=== PATIENT | male | born 1950 | race African-American/Black ===

== ENCOUNTER 2018-11-22 05:12 | Observation (INO) ==
[2018-11-22] MEDS ORDERED: GLUCAGON SUBQ ONE (05:15)
[2018-11-22] MEDS ORDERED: D50W SYRINGE ONE (05:16)
[2018-11-22] MEDS ORDERED: D50W SYRINGE IV ONE (05:16)
--- NOTE | 2018-11-22 05:42 | PROVIDER DOCUMENTATION ---
HPI-General Adult - General Chief Complaint: Low Blood Sugar Stated Complaint: Low BS Time Seen by Provider: 11/22/18 05:15 Source: EMS Allergies/Adverse Reactions: Patient Allergies Allergy/AdvReac Type Severity Reaction Status Date / Time No Known Allergies Allergy Verified 11/22/18 06:21 Home Medications: Home Medication List Medication Instructions Recorded Confirmed Last Taken Type Tamsulosin [Flomax] 1 cap PO DAILY 09/10/12 11/22/18 06/08/18 05:00 History Atorvastatin Calcium [Lipitor] 40 mg PO QHS 07/16/16 11/22/18 06/08/18 05:00 History Primidone [Mysoline] 50 mg PO DAILY 07/16/16 11/22/18 06/08/18 05:00 History Furosemide [Lasix] 40 mg PO DAILY #30 tablet 07/19/16 11/22/18 06/08/18 05:00 Rx B Complex with Vitamin C [Super B 1 each PO DAILY 06/16/17 11/22/18 06/08/18 05: 00 History with Vit C] Carvedilol [Coreg] 6.25 mg PO BID 06/16/17 11/22/18 06/08/18 05:00 History Cholecalciferol (Vitamin D3) 1 cap PO DAILY 06/16/17 11/22/18 06/08/18 05:00 History [D3-2000] Hydralazine [Apresoline] 50 mg PO BID 06/16/17 11/22/18 06/08/18 05:00 History Insulin Detemir [Levemir] 40 unit SUBQ DAILY 06/16/17 11/22/18 06/08/18 05:00 History Aspirin 81 mg PO DAILY 06/03/18 11/22/18 06/01/18 08:00 History Pyridostigmine [Mestinon] 0.5 tab PO TID 06/03/18 11/22/18 06/08/18 05:00 History Albuterol 2.5MG/Ipratrop 0.5MG 3 ml INH Q4-6H PRN PRN #100 ea 11/15/18 11/22/18 Unknown Rx [Duoneb (A & A)] Montelukast Sodium [Singulair] 10 mg PO DAILY #14 tab 11/15/18 11/22/18 Unknown Rx - History of Present Illness -Gen Adult Nature of Presenting Problems: Patient is a 68 year old black male with h/o COPD, CHF,ESRD, and diabetes who became unresponsive tonight after taking 34 units of Levemir at bedtime tonight. EMS report a fingerstick glucose of 31. Given 1mg glucagon and 1amp of D50W on arrival with good response. Patient is now alert. Family reports that patient does not check his fingerstick glucose at home.Patient also reports intermittent chest discomfort in past week. Review of Systems - Adult - REVIEW OF SYSTEMS - ADULT ROS:: limited per condition Constitutional: denies: chills, fever Eyes: reports: no symptoms reported Ears, Nose, Mouth & Throat: reports: no symptoms reported Cardiovascular: reports: chest pain (intermittent chest discomfort) Respiratory: reports: no symptoms reported, cough, wheezing Gastrointestinal: reports: no symptoms reported Genitourinary: reports: no symptoms reported Musculoskeletal: reports: no symptoms reported Integumentary: reports: no symptoms reported Neurological: reports: see HPI Hematologic/Lymphatic: reports: no symptoms reported Allergic/Immunologic: reports: no symptoms reported All Other Systems: Reviewed and Negative Past History - Adult - PAST MEDICAL HISTORY-ADULT Review of Records: reports: Old Records Reviewed, Nursing Assessment Review, Medications Reviewed, Social history reviewed & non-contributory. Major Childhood Illnesses: reports: denies history Cardiovascular: reports: CHF Respiratory: reports: asthma, COPD Gastrointestinal: reports: GERD Obstetrical/Gynecological: reports: denies history Genitourinary: reports: denies history, ESRD Musculoskeletal: reports: denies history Neurological: reports: denies history Endocrine/Immune: reports: Diabetes Other Conditions: reports: denies history - PRIOR SURGERIES/PROCEDURES Surgical/Procedure History: reports: cardiac stent, orthopedic (extremity), other (dialysis fistula in left arm) - IMMUNIZATION STATUS Childhood Immunizations: See Nurse Assessment Flu Vaccine: See Nurse Assessment - FAMILY HISTORY Family History: reviewed, not pertinent - SOCIAL HISTORY Smoking: denies Physical Exam-General - CONSTITUTIONAL General Appearance: other (initially lethargic, now alert and responsive with generalized weakness) - EYES Eyes: other (clear) - HEAD, EARS, NOSE, MOUTH & THROAT HENMT: moist mucous membranes - NECK Neck: supple - RESPIRATORY Respiratory: lungs clear - CARDIOVASCULAR Cardiovascular: regular rate, rhythm - GASTROINTESTINAL (ABDOMEN) Abdominal Exam: non tender, soft - MUSCULOSKELETAL Back Exam: no CVA tenderness Extremity: non-tender, other (dialysis fistula in left arm) - SKIN Integumentary: normal color, normal turgor - NEUROLOGIC Neurologic: no motor/sensory deficits - PSYCHIATRIC Psych/Mental Status: anxious Progress - PLAN OF CARE/RESULTS Progress/Plan/Lab Results: Vital Signs - 8 hr 11/22/18 05:12 11/22/18 05:32 11/22/18 05:33 Temperature 94.3 F L Pulse Rate 84 Respiratory Rate 16 Blood Pressure 186/77 O2 Sat by Pulse Oximetry 98 Laboratory Results - last 24 hr 11/22/18 11/22/18 05:22 05:23 POC Glucose 297 H D 203 H Orders Category Date Time Status FSBS/Accucheck Result ORDERED Care 11/22/18 05:36 Active Snacks TID TID Care 11/22/18 05:36 Active CBC WITH ELECTRONIC DIFF [HEME] Stat Lab 11/22/18 05:16 Ordered CMP [COMPREHENSIVE METABOLIC PANEL] [CHEM] Stat Lab 11/22/18 05:16 Uncollected Dextrose 50% Syringe [D50w Syringe] Med 11/22/18 05:16 Discontinued 50 ml .ROUTE .STK-MED ONE Dextrose 50% Syringe [D50w Syringe] Med 11/22/18 05:16 Discontinued 50 ml IV NOW ONE Glucagon Med 11/22/18 05:15 Discontinued 1 mg SUBQ NOW ONE Heart score: 5 Result Diagrams: 11/22/18 05:32 11/22/18 05:32 - EKG 1 Time of EKG reading by physician:: 05:43 EKG Read and Signed by:: Vadim Adams Rate: 76 Rhythm: NSR ST Wave: non-specific ST changes Comments: occ PVCs, prolonged QT, no STEMI - CONSULTS/PCP/HOSPITALIST Notification #1 *Consult/PCP/Hospitalist*: Dr. Hale Time Discussed: 06:50 Reason/Comments: recommend transfer to [facility] for cardiology eval Consult Disposition: Admit #2 Consult: Dr Davis, hospitalist Reason/Comments: will arrange transfer to [facility] Consult Disposition: Admit - CHANGE OF SHIFT REPORT (ED Provider) Report Given and Care Transferred to:: Dr. Douglas Time of Transfer: 07:00 Items Pending: Physician Consult/Arrival Departure - Departure Date of Disposition Decision: 11/22/18 Time of Disposition Decision: 07:00 DIAGNOSIS: Hypoglycemia due to insulin, Elevated troponin, ESRD (end stage renal disease) Chest pain Qualifiers: Chest pain type: unspecified Qualified Code(s): R07.9 - Chest pain, unspecified Disposition: ADMITTED INPATIENT 09 Certified Medical Emergency: Emergent Condition: Stable - Critical Care Note This patient required my direct & personal management of CC.: Yes Attestation - Physician/ MEGHNA Attestation Patient care was provided by Advanced Practice Provider:: No The physician spent face to face time with patient:: Yes Advanced Practice Provider documentation review:: Supervising physician onsite and consulted in the evaluation and care of this patient. The physician did have a face to face encounter with the patient.
[2018-11-22 05:50] LABS: BASO# 0.01 X1000 (0.0-0.2); BASO% 0.1 % (0.0-0.8); EOS# 0.09 X1000 (0.0-0.7); EOS% 1.1 % (0.0-10.0); HEMATOCRIT 32.8 % (42.0-52.0); HEMOGLOBIN 10.4 g/dL (14.0-18.0); IMM GRAN# 0.08 X1000 (0.0-0.04); LYMPH# 1.62 X1000 (1.2-3.4); LYMPH% 19.4 % (20.5-51.1); MCH 29.5 PG (27-31); MCHC 31.7 g/dL (33-37); MCV 93.2 FL (81-99); MONO# 0.94 X1000 (0.11-0.59); MONO% 11.3 % (1.7-9.3); MPV 10.1 FL (7.4-10.4); NEUT% 67.1 % (42.2-75.2); PLT 294 X1000 (130-400); RBC 3.52 XMIL (4.7-6.1); RDW 14.9 % (11.5-14.5); WBC 8.34 X1000 (4.8-10.8)
[2018-11-22 06:05] LABS: ALBUMIN 2.8 g/dL (3.5-5.0); CALCIUM 7.2 mg/dL (8.8-10.2); POTASSIUM 3.3 mmol/L (3.5-5.1); TOTAL BILIRUBIN 0.3 mg/dL (0.20-1.00); TOTAL PROTEIN 5.6 g/dL (6.3-8.3)
[2018-11-22 06:09] LABS: CREATININE 5.4 mg/dL (0.7-1.2)
[2018-11-22] MEDS ORDERED: ASPIRIN PO ONE (06:38)
[2018-11-22] MEDS ORDERED: TYLENOL PO PRN ×2 (11:32→17:12)
[2018-11-22] MEDS ORDERED: ZOFRAN IV PRN ×2 (11:32→17:10)
--- NOTE | 2018-11-22 12:19 | HISTORY AND PHYSICAL ---
PRIMARY CARE PHYSICIAN: Dr. Jad Valles. CHIEF COMPLAINT: Unresponsive after taking 34 units of Levemir at bedtime last night. When EMS arrived, his blood sugar was 31. He was given glucagon and D50. Arrived to the emergency room alert and awake. HISTORY OF PRESENTING ILLNESS: This is a 68-year-old male who presented to [facility] ER via EMS after he was found unresponsive around 5 a.m. this morning. He had taken 34 units of his Levemir at bedtime last night. When EMS arrived, his blood sugar was 31. They gave him glucagon and D50-W en route. When he arrived to the emergency room, his blood sugar was 297. He is a known end-stage renal disease patient that gets dialysis on Friday, Friday, Friday. Laboratory data showed his BUN of 37, creatinine of 5.4. They did check a troponin that was elevated at 0.177 with a repeat 3 hours later at 0.166. He denies having any chest pain, shortness of breath. No nausea, vomiting, diaphoresis. He did have an echocardiogram done in January of 2018 that showed an ejection fraction of 55% with normal LV systolic function but due to having the elevated troponins, after discussion with Cardiology it was felt that he would need to be admitted for further investigation into why his troponins were positive. So, he will be admitted to the [facility] for further evaluation and treatment. PAST MEDICAL HISTORY: COPD, CHF, diabetes type 2, end-stage renal disease with dialysis on Friday, Friday, Friday. PAST SURGICAL HISTORY: CABG and dialysis fistula to his left arm. FAMILY HISTORY: Reviewed and noncontributory. SOCIAL HISTORY: Currently lives with family. Denies any tobacco, alcohol, or illicit drug use. ALLERGIES: He has no known drug allergies. HOME MEDICATIONS: A current list will need to be obtained and restarted as appropriate. Nursing order to update and confirm home medications has been placed. LABORATORY DATA: Showed a white blood cell count of 8.34, hemoglobin 10.4, hematocrit 32.8, platelets 294,000. Sodium 137, potassium 3.3, chloride 100, CO2 26, BUN of 37, with a creatinine of 5.4, glucose 183. Initial cardiac enzymes showed a troponin of 0.177, repeat 0.166. Blood sugars are currently at 231. He is alert and awake. REVIEW OF SYSTEMS: He denied any fever, chills, blurred vision, dizziness, chest pain, coughing, shortness of breath. He denied any abdominal pain, constipation, diarrhea, or burning or hurting with urination. PHYSICAL EXAMINATION: VITAL SIGNS: On arrival, he had a temperature of 94.3 degrees, pulse 84, respirations 16, blood pressure 186/77. Currently his temperature is 97.5 degrees. GENERAL: This is a 68-year-old male, who is lying in the bed and answers questions appropriately. HEENT: Normocephalic, atraumatic. Normal ENT inspection. Oropharynx and nares are clear. Eyes: Pupils are equal, round, reactive to light and accommodation. Extraocular movements intact. NECK: Normal inspection. Normal range of motion. LUNGS: Clear to auscultation bilaterally with equal lung expansion and chest wall movement. HEART: With regular rate and rhythm. No murmurs, rubs, or gallops. ABDOMEN: Soft, nontender, nondistended. Bowel sounds are present x4 quadrants. MUSCULOSKELETAL: He has 5/5 strength x4 extremities. NEUROLOGICAL: The cranial nerves 2-12 are grossly intact. ASSESSMENT: 1. Hypoglycemia in a known diabetic type 2. 2. Hypothermia secondary to #1. 3. Elevated troponin. 4. End-stage renal disease with dialysis Friday, Friday, Friday. PLAN: He will be admitted to the [facility]. Placed on telemetry, O2 per protocol. We will consult Cardiology and Nephrology. Do serial cardiac enzymes x3. Place on diabetic diet. Update and confirm his home medications per nursing. Place on pattern blood sugars with sliding scale insulin. Recheck CBC, BMP in the a.m. and further orders after being seen by attending and consultations. Dictated by WIL Mittal for Sachin Davis MD cc: WIL Mittal MD Edwin K. Matthews, MD
[2018-11-22] MEDS ORDERED: DUONEB (A & A) INH PRN (14:39)
[2018-11-22] MEDS ORDERED: SINGULAIR PO SCH (14:45)
[2018-11-22] MEDS ORDERED: APRESOLINE PO SCH (14:45)
[2018-11-22] MEDS ORDERED: ASPIRIN PO SCH (14:45)
[2018-11-22] MEDS ORDERED: LASIX PO SCH (14:45)
[2018-11-22] MEDS ORDERED: COREG PO SCH (14:45)
[2018-11-22] MEDS ORDERED: HUMALOG (PARKWAY) SUBQ SCH (16:00)
[2018-11-22] MEDS ORDERED: HUMULIN R DOSE (PARKWAY) SUBQ SCH (16:00)
[2018-11-22] MEDS ORDERED: MESTINON PO SCH (17:00)
[2018-11-22] MEDS ORDERED: D5W 250 ML IV SCH (17:00)
[2018-11-22] MEDS ORDERED: D5W 1,000 ML IV SCH (17:30)
--- NOTE | 2018-11-22 19:25 | HISTORY AND PHYSICAL ---
ADDENDUM: Patient came in with low blood sugar. He takes 34 units of Levemir listed here he takes 40. I guess this may have been adjusted so patient was unresponsive so that prompted some sort of immense workup which included a troponin which patient was positive in a end-stage renal patient. He denies any chest pain. He does report some in any case he is doing well. His EKG was really unchanged. He denies any chest pain. His several troponins though were positive 0.177, 0.16, 0.181 with a normal CK. Unclear really what diagnosis to link to that, but he is a CABG patient with CHF and CAD. Plan will be to place in obs or at least admit overnight and further evaluate, get a Cardiology opinion. He had a catheterization 2 years ago. Echocardiogram this year was pretty unremarkable. Will get serial enzymes and echocardiogram and decide about noninvasive versus invasive imaging per Cardiology recommendations. His sugars I have decreased his detemir to 20 daily and we will monitor on sliding scale, with cardiac clearance he can go home pending their workup evaluation. This is a [id number] encounter note with Trish Edward. cc: MD Bon Rios MD
[2018-11-22] MEDS: DUONEB (A & A) INH PRN (19:45)
--- NOTE | 2018-11-22 19:59 | EKG Report ---
Test Performed on : 11/22/2018 12:50:15 PM Test Reason : abnormal troponin Blood Pressure : / mmHG Vent. Rate : 080 BPM Atrial Rate : 080 BPM P-R Int : 168 ms QRS Dur : 096 ms QT Int : 422 ms P-R-T Axes : 036 -30 138 degrees QTc Int : 486 ms Normal sinus rhythm. Possible Left atrial enlargement Left axis deviation Left ventricular hypertrophy with repolarization abnormality Inferior infarct (cited on or before 10-SEP-2012) Anterolateral infarct (cited on or before 26-JAN-2013) Abnormal ECG When compared with ECG of 22-NOV-2018 05:42, (Unconfirmed) premature ventricular complexes. are no longer present premature atrial complexes. are no longer present Questionable change in initial forces of Anterior leads T wave inversion more evident in Anterior leads Unconfirmed Result
--- NOTE | 2018-11-22 20:09 | EKG Report ---
Test Performed on : 11/22/2018 05:42:52 AM Test Reason : SDA Blood Pressure : / mmHG Vent. Rate : 076 BPM Atrial Rate : 076 BPM P-R Int : 170 ms QRS Dur : 100 ms QT Int : 456 ms P-R-T Axes : 054 -06 123 degrees QTc Int : 513 ms Sinus rhythm. with occasional premature ventricular complexes. and premature atrial complexes. Possible Left atrial enlargement Inferior infarct (cited on or before 10-SEP-2012) Cannot rule out Anterior infarct , age undetermined ST & T wave abnormality, consider lateral ischemia Prolonged QT Abnormal ECG When compared with ECG of 03-JUN-2018 13:23, premature ventricular complexes. are now present premature atrial complexes. are now present T wave inversion less evident in Lateral leads QT has lengthened Unconfirmed Result
[2018-11-22] MEDS: LIPITOR PO SCH (20:17)
[2018-11-22] MEDS: FLOMAX PO SCH (20:17)
[2018-11-22] MEDS: COREG PO SCH (20:18)
[2018-11-22] MEDS: APRESOLINE PO SCH (20:18)
--- NOTE | 2018-11-22 20:37 | Diag Imaging Result Doc PS360 ---
EXAM: CHEST-2 VIEWS 11/22/2018 HISTORY: cough, wheezing TECHNIQUE: PA and lateral chest COMMENT: The inspiration is slightly less optimal than on 11/14/2018. The heart size, pulmonary vascularity, and lung garcia are otherwise unchanged in appearance. IMPRESSION: Stable chest. Electronically signed by Nash Cevallos 11/22/2018 8:33 PM
[2018-11-22] MEDS ORDERED: FLOMAX PO SCH (21:00)
[2018-11-22] MEDS ORDERED: LIPITOR PO SCH (21:00)
[2018-11-22] MEDS: D5W 1,000 ML IV ONE ×2 (21:52→22:40)
[2018-11-22] MEDS: HUMULIN R SUBQ SCH (21:53)
--- NOTE | 2018-11-22 22:09 | CONSULTATION ---
DATE OF CONSULTATION: 11/22/2018 IMPRESSION: 1. Very mildly elevated troponin in nonspecific range. The patient has not had chest pain but rather has had some cough and chest congestion with wheezing. Previous troponins reported to be normal were prior to end-stage renal disease. I suspect his very mildly elevated troponins are more likely related to his renal dysfunction. 2. Severe coronary atherosclerosis. Patient is status post coronary bypass grafting 2 years ago. Left ventricular ejection fraction postoperatively normal. 3. Currently admitted with hypoglycemia episode. 4. End-stage renal disease requiring hemodialysis Friday, Friday, and Friday. 5. Type 2 diabetes mellitus requiring insulin for control. 6. Recent chest congestion and cough which has been productive along with wheezing. Patient has been on antibiotics for bronchitis as an outpatient. He has also been receiving bronchodilators. RECOMMENDATIONS: 1. Repeat echocardiography. 2. Continue medical management of patient's coronary atherosclerosis. 3. Reasonable to observe overnight primarily because of recent tendency for hypoglycemia in a patient with diabetes requiring insulin and in the setting of renal failure. 4. Consider further management of bronchitis. Will defer this to the primary team. HISTORY: This 68-year-old -[place] male with past history of severe coronary disease, previous coronary bypass grafting 2 years ago, end-stage renal disease requiring hemodialysis Friday, Friday, Friday, type 2 diabetes mellitus requiring insulin for control, obesity, and recent problems with chest congestion and productive cough was admitted after presenting to the emergency room by ambulance after episode of confusion which proved to be related to hypoglycemia. He has not had much in the way of cardiac problems since his bypass surgery 2 years ago. Left ventricular ejection fraction last year by echocardiography was normal. He has continued without any chest discomfort or dyspnea. Over the past 2 weeks he has had problems with productive cough initially with clear sputum but more recently with somewhat colored sputum to yellow. Not been aware of any fever. He has been through 1 round of antibiotics, has been started on a 2nd round of antibiotics along with bronchodilators. This morning his noted that he was acting rather strangely and confused. EMS was summoned. He was found to have a glucose of 31 on their arrival. He was given glucagon and an amp of D50. When he arrived to the emergency room his blood sugar was 297. As part of the ER evaluation he had a broad panel of laboratory data obtained which included troponin which was 0.17. The ER doctor reported he had been having some recent chest discomfort and requested cardiology consultation after he which he was advised to admit patient for further evaluation and cardiology encounter. Subsequent to admission his followup troponins have been 0.166 and 0.181 with normal CPKs. PAST MEDICAL HISTORY: 1. Severe atherosclerotic coronary disease requiring coronary bypass surgery 2 years ago. Echocardiography last year indicated normal left ventricular ejection fraction. 2. End-stage renal disease requiring hemodialysis Friday, Friday, and Fridays. 3. Type 2 diabetes mellitus requiring insulin for control. ALLERGIES: He has no known drug allergies. MEDICATIONS PRIOR TO ADMISSION: As listed. SOCIAL HISTORY: He is and lives with family. He does not smoke or use alcohol. He has been somewhat inconsistent in his compliance with monitoring his sugars at home according to his . Is also somewhat inconsistent with his diet. FAMILY HISTORY: Noncontributory. REVIEW OF SYSTEMS: Pulmonary: Noteworthy for wheezing and productive cough. Gastrointestinal: Negative. Constitutional: Negative for fever. Remainder of review of systems negative/noncontributory with 14 total systems reviewed. PHYSICAL EXAMINATION: General: This is a overweight, older -[place] male in no distress. Vital signs: Blood pressure 179/91, heart rate 88, oxygen saturation 95% on nasal cannula oxygen. HEENT: Extraocular movements intact. Mucous membranes moist. Neck: Supple without discernible jugular distention. No carotid bruits. Chest: Auscultation of the chest reveals scattered expiratory wheezes. Cardiac Exam: Reveals a regular rate and rhythm without appreciable murmur or gallop. Abdomen: Soft, nontender. Bowel sounds are normal. Extremities: Without edema. Neurologic: Reveals him to be alert and fully oriented. Speech is fluent. Moves all 4 extremities equally well. Skin: Warm and dry. Psychiatric: Reveals mood to be appropriate. DATA: Twelve lead EKG not yet scanned into electronic medical record. Will review. LABORATORY DATA: Includes white blood cell count 8.34, hematocrit 32.8, hemoglobin 10.4, platelet count 294,000. Sodium 137, potassium 3.3, chloride 100, carbon dioxide 26, BUN 37, creatinine 5.4, glucose 183. Initial CPK 167, followup CPK 174 and 181. Initial troponin 0.177 with a followup troponin of 0.166 and 0.181. Albumin 2.8. Chest x-ray not obtained. Will arrange for chest x-ray. cc: MD Bon Burleson MD
[2018-11-23] MEDS: DUONEB (A & A) INH PRN (02:48)
[2018-11-23 05:27] LABS: EOS# 0.14 X1000 (0.0-0.7); HEMATOCRIT 31.4 % (42.0-52.0); HEMOGLOBIN 9.8 g/dL (14.0-18.0); IMM GRAN# 0.04 X1000 (0.0-0.04); IMM GRAN% 0.6 % (0.0-0.5); LYMPH# 1.44 X1000 (1.2-3.4); LYMPH% 20.8 % (20.5-51.1); MCH 29.1 PG (27-31); MCHC 31.2 g/dL (33-37); MCV 93.2 FL (81-99); MONO# 1.02 X1000 (0.11-0.59); MONO% 14.7 % (1.7-9.3); MPV 9.6 FL (7.4-10.4); NEUT# 4.28 X1000 (1.4-6.5); NEUT% 61.9 % (42.2-75.2); PLT 261 X1000 (130-400); RBC 3.37 XMIL (4.7-6.1); RDW 14.9 % (11.5-14.5); WBC 6.92 X1000 (4.8-10.8)
[2018-11-23 05:56] LABS: CALCIUM 7.2 mg/dL (8.8-10.2); POTASSIUM 3.8 mmol/L (3.5-5.1)
[2018-11-23] MEDS ORDERED: NS 2,000 ML MISC PRN (07:01)
[2018-11-23] MEDS ORDERED: HEPARIN IV PRN (07:01)
[2018-11-23] MEDS ORDERED: TIGHT: 0.2 ML/HR FOR DIALYSIS MISC PRN (07:01)
[2018-11-23] MEDS: SINGULAIR PO SCH (08:42)
[2018-11-23] MEDS: VICON-C PO SCH (08:42)
[2018-11-23] MEDS: MYSOLINE PO SCH (08:42)
[2018-11-23] MEDS: ASPIRIN PO SCH (08:42)
[2018-11-23] MEDS: ZOSYN 3.375 GM in NS 50 ML IV SCH ×2 (08:42→15:13)
[2018-11-23] MEDS: VITAMIN D PO SCH (08:42)
[2018-11-23] MEDS: HUMULIN R SUBQ SCH ×4 (08:44→22:39)
[2018-11-23] MEDS ORDERED: LEVEMIR SUBQ SCH ×2 (09:00→21:00)
[2018-11-23] MEDS ORDERED: VICON-C PO SCH (09:00)
[2018-11-23] MEDS ORDERED: VITAMIN D PO SCH (09:00)
[2018-11-23] MEDS ORDERED: MESTINON PO SCH (09:00)
[2018-11-23] MEDS ORDERED: LEVEMIR INSULIN *HA SUBQ SCH (09:00)
[2018-11-23] MEDS ORDERED: MYSOLINE PO SCH (09:00)
--- NOTE | 2018-11-23 10:02 | PROGRESS NOTE ---
DATE: 11/23/2018 SUBJECTIVE: The patient reports still having a cough with no sputum production because he is not able to move or get up. OBJECTIVE: Vital Signs: Temperature 97.5, heart rate 83, respiratory rate 15, blood pressure 159/68, O2 saturation 95% on 2 L nasal cannula. General Examination: This is a 68-year-old, male, lying in bed, in no acute distress. HEENT: Head is normocephalic and atraumatic. Neck: No JVD noted. No carotid bruits. No lymphadenopathy. No thyromegaly. Cardiovascular Examination: S1 and S2 heard. No murmurs, gallops, or rubs. Regular rate and rhythm. Respiratory Examination: Coarse sounds and wheezing noted in both pulmonary garcia, mostly noted in both bases. Patient is not using any accessory muscles or having work of breathing. Abdomen: Soft. Nontender to palpation. Bowel sounds present. No organomegaly. Extremities: No clubbing, cyanosis, or edema. Peripheral pulses present in both legs. Neurological Examination: The patient is alert and oriented x3. Moves 4 extremities. Laboratory Data: Reviewed. ASSESSMENT AND PLAN: 1. Acute respiratory failure secondary to acute bronchitis. The patient reports that he is having cough for 7 days. Not able to move any secretion out. At this point, we will start Zosyn and breathing treatments as well. We will continue to monitor this patient closely. 2. Hypoglycemia secondary to Levemir. Currently, this patient is getting half of the doses that he was supposed to use. The blood sugars are better. We will continue to monitor. 3. Elevated troponins. The patient has not been complaining of any chest pain and troponins have been just mildly elevated. At this point, I do not think he has any acute coronary syndrome. We will continue to monitor. 4. End-stage renal disease, on dialysis. Dr. Sahu will be consulted. He will continue with routine dialysis. cc: Bon Contreras MD
--- NOTE | 2018-11-23 13:43 | NEPHROLOGY CONSULTATION ---
DATE: 11/22/2018 REASON FOR ADMISSION: Unresponsive associated with hypoglycemia. REASON FOR CONSULT: Acute kidney injury with assistance with medical management. CONSULTING PHYSICIAN: WIL Mittal, for Dr. Davis. HISTORY OF PRESENT ILLNESS: Mr. Aleman is a 68-year-old male who is known to our outpatient services for recent start on hemodialysis. His is at his bedside. He presented to [facility] with altered mental status. He was found unresponsive at 5 a.m. Friday morning. He has been taking his regular insulin, though he admits that he has not been eating and drinking well for the last several days. His blood sugar was found to be 31. He was given an amp of D50 en route to the emergency room. Upon arrival, it was found to be 297. Due to patient requiring hemodialysis during his hospitalization on Friday, Friday, Friday, he was transferred to [facility]. Currently resides in [facility] for further evaluation and workup. The patient has been known to have increased work of breathing. States that he has been on antibiotics x2 days prior to this episode and was given antibiotics per Dr. Her. He denies that he has any chest pain, increased work of breathing. No nausea, vomiting. No diaphoresis. No diarrhea. No recent falls. Troponins were elevated, more than likely secondary to hemodialysis. Previous echocardiogram done in January of 2018 showed an ejection fraction of 55% with normal LV systolic function. Due to these findings, the patient continues to reside in [facility]. PAST MEDICAL HISTORY: COPD, CHF, diabetes mellitus type 2, end-stage renal disease with hemodialysis on Friday, Friday, Friday, anemia of chronic disease, recent bronchitis with antibiotic treatment per the primary care. PAST SURGICAL HISTORY: CABG, dialysis fistula to the left forearm, tunnel catheter to the right upper extremity/chest wall. FAMILY HISTORY: Positive for diabetes and hypertension. SOCIAL HISTORY: He lives with his family. Denies any tobacco, alcohol, or illicit drug use. ALLERGIES: Listed as no known drug allergies. HOME MEDICATIONS: Flomax, Mysoline, Lipitor Lasix, vitamin D3, Apresoline, super B complex, Coreg, Levemir, Mestinon, low-dose aspirin, Singulair, and DuoNeb. REVIEW OF SYSTEMS: Times 10 with pertinent positives listed above in the HPI. VITAL SIGNS: His most recent vital signs, temperature 97.6 degrees, blood pressure 153/66, heart rate is 80, respirations 18. He is on 2 L nasal cannula. Last recorded saturation 96%. He has had 0 recorded in. He has had 650 mL out. LABS: Sodium 138, potassium 3.8, chloride 100, CO2 25, BUN 43, creatinine 6, glucose 104, anion gap of 13, calcium 7.2, albumin 2.8. White count 6.92, hemoglobin 9.8, hematocrit 31.4, with a platelet count of 261,000. PHYSICAL EXAMINATION: General: This is a 68-year-old male. He is resting quietly in bed. He is in no acute distress. He is more awake and alert today. Forgetful to most recent events. HEENT: Normocephalic, atraumatic. His conjunctivae are pale pink. He has VOLODYMYR. Mucous membranes are dry with poor dentition. Neck: Supple. Trachea midline. He does have trace JVD in the upright position. Cardiovascular: Regular rate and rhythm. Lungs: Clear to auscultation posteriorly. He does have expiratory wheeze present. On O2. Abdomen: Slightly distended. Positive bowel sounds. Genitourinary: Not inspected. He has minimal urine out with dialysis assist. Extremities: Have trace edema. Neurological: As mentioned above. ASSESSMENT AND PLAN: 1. Chronic kidney disease stage 5D. The patient is in need of hemodialysis treatment today. He is to be placed on a 2K bath. He is to dialyze for 3.5 hours. We will attempt to pull him to his outpatient dry weight. 2. Electrolytes and acid-base balance. These are acceptable. 3. Anemia. This is low but stable. 4. Hypoglycemia. This is followed by the primary care team. 5. Elevated troponins. This has been evaluated. More than likely secondary to his end-stage renal disease and dialysis treatments. 6. Bronchitis. The patient is on renal-dosed antibiotics. Followed by the primary care. I would like to thank you for allowing us to follow with this patient. Dictated by WIL Francis for Polo Sahu MD Face to face encounter, data reviewed, discussed with Serge Brown on 11/23/18. I agree with the above assessment and plan of care. cc: WIL Francis MD Cesar Garcia-Rodriguez, MD MTDD
[2018-11-23] MEDS: LASIX PO SCH (15:13)
[2018-11-23] MEDS: MESTINON PO SCH ×2 (15:13→21:01)
[2018-11-23] MEDS: COREG PO SCH ×2 (15:13→21:01)
[2018-11-23] MEDS: APRESOLINE PO SCH ×2 (15:13→21:01)
[2018-11-23] MEDS ORDERED: ZOSYN 2.25 GM in NS 50 ML IV SCH (15:45)
[2018-11-23] MEDS: DUONEB (A & A) INH SCH ×4 (15:45→22:34)
--- NOTE | 2018-11-23 16:23 | PROGRESS NOTE ---
DATE: 11/23/2018 SUBJECTIVE: The patient continues without chest discomfort or shortness of breath. OBJECTIVE: Vital Signs: Blood pressure 159/68, heart rate 83, oxygen saturation 95% to 100%. Neck: There is no significant jugular venous distention. Chest: Clear to auscultation. Cardiac Exam: Reveals a regular rate and rhythm without appreciable murmur or gallop. Extremities: Without edema. LABORATORY DATA: White blood cell count 6.92, hematocrit 31.4, hemoglobin 9.8, platelet count 261,000. Sodium 138, potassium 3.8, chloride 100, carbon dioxide 25, BUN 43, creatinine 6.0, glucose 104. Serial troponins 0.177, 0.166, 0.181, 0.189, and 0.210. IMPRESSION: 1. Mildly elevated troponin in nonspecific range with troponin levels pretty much flat. The patient has not had any angina. I suspect this is very much related to his chronic kidney disease. 2. Severe coronary atherosclerosis. The patient is status post coronary bypass grafting 2 years ago. He continues without angina. 3. Patient currently admitted after hypoglycemic episode. 4. Chest congestion and cough with associated wheezing. Suspect acute bronchitis. 5. End-stage renal disease requiring chronic hemodialysis. 6. Type 2 diabetes mellitus. RECOMMENDATIONS: 1. Follow up echocardiography. 2. If echocardiography reconfirms preserved left ventricular systolic function without new wall motion abnormality, it would be reasonable for patient to be discharged to home, to have follow up with his regular histologic aide, Dr. Armin Landeros. cc: MD Bon Burleson MD
[2018-11-23] MEDS: LIPITOR PO SCH (21:02)
[2018-11-23] MEDS: FLOMAX PO SCH (21:02)
--- NOTE | 2018-11-23 22:05 | EKG Report ---
Test Performed on : 11/22/2018 8:33:39 PM Test Reason : CAD Blood Pressure : / mmHG Vent. Rate : 082 BPM Atrial Rate : 082 BPM P-R Int : 160 ms QRS Dur : 094 ms QT Int : 420 ms P-R-T Axes : 033 -20 138 degrees QTc Int : 490 ms Normal sinus rhythm. Left atrial enlargement Left ventricular hypertrophy Inferior infarct (cited on or before 10-SEP-2012) Anterolateral infarct (cited on or before 26-JAN-2013) Abnormal ECG When compared with ECG of 22-NOV-2018 12:50, (Unconfirmed) Questionable change in initial forces of Anterior leads T wave inversion no longer evident in Anterior leads Confirmed by Stephanie KHANNA, Sean Wilson ([id number]) on 11/23/2018 10:07:03 PM
[2018-11-24] MEDS: DUONEB (A & A) INH SCH ×2 (03:02→07:31)
[2018-11-24 06:30] LABS: ALBUMIN 2.7 g/dL (3.5-5.0); CREATININE 4.3 mg/dL (0.7-1.2); PHOSPHORUS 4.6 mg/dL (2.7-4.5); POTASSIUM 3.9 mmol/L (3.5-5.1)
[2018-11-24] MEDS: HUMULIN R SUBQ SCH (06:35)
[2018-11-24 06:37] LABS: CALCIUM 6.8 mg/dL (8.8-10.2)
[2018-11-24] MEDS ORDERED: CALCIUM GLUCONATE 1 GM in NS 50 ML IV ONE (08:00)
[2018-11-24] MEDS ORDERED: PHOSLO PO SCH (08:00)
[2018-11-24 08:28] VITALS: BP 150/61
[2018-11-24] MEDS: LASIX PO SCH (08:48)
[2018-11-24] MEDS: MESTINON PO SCH (08:48)
[2018-11-24] MEDS: SINGULAIR PO SCH (08:48)
[2018-11-24] MEDS: COREG PO SCH (08:48)
[2018-11-24] MEDS: VITAMIN D PO SCH (08:48)
[2018-11-24] MEDS: MYSOLINE PO SCH (08:49)
[2018-11-24] MEDS: APRESOLINE PO SCH (08:49)
[2018-11-24] MEDS: ASPIRIN PO SCH (08:49)
[2018-11-24] MEDS: VICON-C PO SCH (08:58)
--- NOTE | 2018-11-24 10:38 | NEPHROLOGY PROGRESS NOTE ---
DATE: 11/24/2018 SUBJECTIVE: Mr. Aleman is resting quietly in bed. Head of the bed is elevated. He states that he is feeling much better and thinks he might be discharged today. OBJECTIVE: Vital Signs: Temperature 97.6 degrees, blood pressure 138/61, heart rate 74, respirations 17. He is currently on 2 L nasal cannula. Last recorded saturation is 96%. He has had 120 in, he has had 300 mL out to void with dialysis yesterday. LABORATORY DATA: Sodium 137, potassium 3.9, chloride 98, CO2 27, BUN 27, creatinine 4.3, glucose 103, anion gap of 12, calcium 6.8, phosphorus 4.6, albumin 2.7. Previous hemoglobin 9.8. PHYSICAL EXAMINATION: General: This is a 68-year-old male who is currently resting quietly in bed. Head of the bed is elevated. He is in no acute distress. Skin: Warm and dry. HEENT: Normocephalic, atraumatic. Conjunctiva is pale pink. He has VOLODYMYR. Mucous membranes are dry. Neck: Supple. Trachea midline. No evidence of JVD. Cardiovascular: He is regular rate and rhythm. He is without murmur or gallop. Lungs: Clear to auscultation bilaterally. Equal excursion. Remains on O2. Abdomen: Soft, nontender, positive bowel sounds. Genitourinary: Not inspected, minimal void. Dialysis assist. Extremities: Have no edema. No clubbing or cyanosis. Neurological: He is alert and oriented to person and place and most recent events. ASSESSMENT AND PLAN: 1. Chronic kidney disease stage 5D. The patient had his routine dialysis treatment yesterday. We will plan for outpatient dialysis in the morning after discharge per his routine prescription. 2. Electrolytes and acid-base balance. These have improved during his hospital stay. 3. Anemia. This remains low but stable. 4. Bronchitis. Patient is currently on renal dosed antibiotics. Defer to the primary care team. I would like to thank you for allowing us to follow with this patient. Dictated by WIL Francis for Polo Sahu MD Face to face encounter, data reviewed, discussed with Serge Brown on 11/24/18. I agree with the above assessment and plan of care. cc: WIL Francisdish, MD [facility]
--- NOTE | 2018-11-24 18:00 | DISCHARGE SUMMARY ---
ADMISSION DATE: 11/22/2018 DISCHARGE DATE: 11/24/2018 DISCHARGE DIAGNOSES: 1. Hypoglycemia, resolved. 2. Diabetes mellitus type 2. 3. Elevated troponins, aware. 4. End-stage renal disease, on dialysis. 5. Acute bronchitis under treatment. CONSULTATIONS: 1. Dr. Laws from cardiology. 2. Dr. Sahu from nephrology. PROCEDURES: Chest x-ray done on admission showed stable chest. HOSPITAL COURSE: This is a 68-year-old male with a past medical history of diabetes, COPD, CHF, who was brought to the emergency department because he was found unresponsive after taking 34 units of Levemir at bedtime, so he was admitted to the hospital for observation. He was found to have elevated troponins, but not really symptoms of chest pain. No chest discomfort. This patient was trended troponins that have been slightly elevated and then start trending down. Dr. Hale from cardiology had been consulted acutely on this patient. He was noticed also to have bronchitis with cough and sputum production. He has been given IV antibiotics here in the hospital. On the day of discharge, the patient is breathing better, tolerating room air, so he is going to be discharged in stable condition. DISCHARGE PHYSICAL EXAMINATION: Vital Signs: Temperature 97.9 degrees, heart rate 81, respiratory rate 18, blood pressure 150/61, and O2 saturation 97% on 2 liters nasal cannula. General: This is a chronically ill-looking 68-year-old male, lying in bed, in no acute distress. Cardiovascular: S1 and S2 heard. No murmurs, gallops, or rubs. Regular rate and rhythm. Respiratory: Clear bilaterally to auscultation. No work of breathing or using accessory muscles. Abdomen: Soft, nontender to palpation. Bowel sounds present. No organomegaly. Extremities: No clubbing, cyanosis, or edema. Peripheral pulses present in both legs. Neurological: The patient is alert and oriented x3. Moves 4 extremities. DISCHARGE DISPOSITION: Home to self-care. LIST OF MEDICATIONS: 1. Levofloxacin 500 mg p.o. every 48 hours. 2. Flomax 1 tablet p.o. daily. 3. Losartan 50 mg 1 tablet p.o. daily. 4. Lipitor 40 mg 1 tablet p.o. daily. 5. Lasix 40 mg 1 tablet p.o. daily. 6. Vitamin D3 at 1 tablet p.o. daily. 7. Carvedilol 6.25 mg 1 tablet p.o. b.i.d. 8. Mestinon 0.5 mg p.o. 3 times per day. 9. Aspirin 81 mg 1 tablet p.o. daily. 10. Singulair 10 mg 1 tablet p.o. daily. 11. Albuterol 3 mL by inhalation every 4 to 6 hours as needed. 12. Insulin Levemir 25 units subcutaneous daily. FOLLOWUP: With primary care physician in 1 week. TIME SPENT: The time spent discharging this patient was 28 minutes. cc: Bon Contreras MD MTDD
--- NOTE | 2018-11-24 18:47 | ECHO REPORT ---
ORDER DATE: 11/22/2018 ECHOCARDIOGRAM: MEASUREMENTS: 1. Left ventricular end-diastolic diameter 5.7. 2. Systolic diameter 3.7. 3. Septal thickness 1.3. 4. Posterior wall thickness 1.2. 5. Aortic root 3.5. 6. Left atrium 4.2. SUMMARY: 1. Adequate quality study. 2. Aortic valve is trileaflet and opens normally on 2-dimensional images. Peak gradient across aortic valve is less than 10 mmHg. Mitral, tricuspid and pulmonic valves are without evidence of structural abnormality. There is very mild mitral regurgitation. The aortic root is normal in size. 3. Normal left ventricular chamber size with moderate concentric left hypertrophy is demonstrated. Estimated left ventricular ejection fraction appears to be at least 60%. No regional wall motion [*]evident. Left atrium is mildly enlarged. Right atrium and right ventricle are normal in size with normal right ventricular systolic function. 4. No pericardial effusion. 5. Appearance of inferior vena cava suggests normal central venous pressure. CONCLUSIONS: 1. Very mild mitral regurgitation. 2. Moderate concentric left hypertrophy with estimated ejection fraction at least 60%. 3. Mild left atrial enlargement. cc: Grey Hale MD
== END 2018-11-24 10:54 | disposition home or self-care (01) ==
LOC: P.ED 05:12 → INTOOBSV 15:13 → SUATTDRO 15:13 → 3S 15:13
PROVIDERS: ATTEND Internal Medicine
CPT/HCPCS: 71020; 71046; 80048; 80053; 80069; 82550; 82948; 84484; 85025; 93005; 93010; 93306; 94640; 94761; 96372; 96374; 99285; A9270; J0610; J1644; J2543; J7030; J7060; J7070; XXXXX